=== PATIENT | female | born 1955 | race Caucasian/White ===

== ENCOUNTER → 2017-02-14 | Outpatient (REF) | payer OTHER ==
[2017-02-15 10:13] LABS: BASO # 0.1 K/mm3 (0.0-0.2); BASO % 0.9 % (0.0-1.0); EOS # 0.2 K/mm3 (0.0-0.50); EOS % 3.2 % (0.0-3.0); LYMPH # 2.6 K/mm3 (1.5-4.5); LYMPH % 33.2 % (24.0-44.0); MEAN CORPUSCULAR HEMOGLOBIN 28.8 pg (27.0-33.0); MEAN CORPUSCULAR HGB CONC 32.5 g/dl (32.0-36.5); MEAN CORPUSCULAR VOLUME 88.7 fl (80.0-96.0); MONO # 0.6 K/mm3 (0.0-0.8); MONO % 8.6 % (0.0-5.0); NEUTROPHILS # 3.8 K/mm3 (1.8-7.7); NEUTROPHILS % 51.7 % (36.0-66.0); RED CELL DISTRIBUTION WIDTH 13.1 % (11.5-14.5); WHITE BLOOD COUNT 7.3 K/mm3 (4.0-10.0)
[2017-02-15 10:25] LABS: ALBUMIN 4.3 GM/DL (3.2-5.2); ALKALINE PHOSPHATASE 84 U/L (45-117); ALT/SGPT 23 U/L (12-78); ANION GAP 6 MEQ/L (8-16); AST/SGOT 13 U/L (15-37); BILIRUBIN,TOTAL 0.5 MG/DL (0.2-1.0); BLOOD UREA NITROGEN 16 MG/DL (7-18); CALCIUM LEVEL 9.6 MG/DL (8.8-10.2); CARBON DIOXIDE LEVEL 30 MEQ/L (21-32); CHLORIDE LEVEL 102 MEQ/L (98-107); CHOLESTEROL LEVEL 240 MG/DL (<200); CREATININE FOR GFR 0.78 MG/DL (0.55-1.02); GLOMERULAR FILTRATION RATE > 60.0 (>45); GLUCOSE, FASTING 98 MG/DL (80-110); POTASSIUM SERUM 4.7 MEQ/L (3.5-5.1); SODIUM LEVEL 138 MEQ/L (136-145); TOTAL PROTEIN 7.6 GM/DL (6.4-8.2); TRIGLYCERIDES LEVEL 226 MG/DL (<150)
== END ==
LOC: M LAB REF 09:35
PROVIDERS: ATTEND Physician Assistant Medical
DX: M13.80 Other specified arthritis, unspecified site (principal); E78.2 Mixed hyperlipidemia

== ENCOUNTER → 2017-10-21 | Outpatient (CLI) | payer OTHER ==
[2017-10-21 19:01] LABS: AST/SGOT 17 U/L (7-37); CREATININE FOR GFR 0.82 MG/DL (0.55-1.30); GLOMERULAR FILTRATION RATE > 60.0 (>45)
[2017-10-21 19:01] LABS: BLOOD UREA NITROGEN 20 MG/DL (7-18)
== END ==
LOC: M LAB 17:24
DX: M25.569 Pain in unspecified knee (principal)
CPT/HCPCS: 84450

== ENCOUNTER → 2017-12-23 | Outpatient (CLI) | payer OTHER ==
[2017-12-23 09:31] LABS: ESTIMATED AVERAGE GLUCOSE 126 MG/DL (60-110)
[2017-12-23 09:51] LABS: CHOLESTEROL LEVEL 182 MG/DL (<200); HDL CHOLESTEROL 50 MG/DL (>40); LDL CHOLESTEROL 102.8 MG/DL (<100); NON-HDL-C 132 MG/DL; TRIGLYCERIDES LEVEL 146 MG/DL (<150)
== END ==
LOC: M LAB 08:43
DX: Z13.228 Encounter for screening for other metabolic disorders (principal); E66.9 Obesity, unspecified (principal); E78.5 Hyperlipidemia, unspecified
CPT/HCPCS: 84443

== ENCOUNTER → 2018-01-06 | Outpatient (REF) | payer OTHER ==
[2018-01-06 18:46] LABS: APPEARANCE, URINE CLEAR (CLEAR); BACTERIA, URINE AUTO 1+ (NEGATIVE); BILIRUBIN, URINE AUTO NEGATIVE (NEGATIVE); BLOOD, URINE BLOOD NEGATIVE (NEGATIVE); COLOR, URINE STRAW (YELLOW); GLUCOSE, URINE (UA) AUTO NEGATIVE (NEGATIVE); KETONE, URINE AUTO NEGATIVE (NEGATIVE); LEUKOCYTE ESTERASE, URINE AUTO 2+ (NEGATIVE); MUCUS, URINE SMALL (NEGATIVE); NITRITE, URINE AUTO NEGATIVE (NEGATIVE); PROTEIN, URINE AUTO NEGATIVE (NEGATIVE); RBC, URINE AUTO 0 /HPF (0-3); SPECIFIC GRAVITY URINE AUTO 1.006 (1.002-1.035); SQUAMOUS EPITHELIAL CELL UR AU 0 /HPF (0-6); UROBILINOGEN, URINE AUTO 0.2 mg/dL (0.0-2.0); WBC, URINE AUTO 7 /HPF (0-3)
== END ==
LOC: M SMT 17:08
DX: R32 Unspecified urinary incontinence (principal)

== ENCOUNTER → 2018-01-23 | Outpatient (CLI) | payer OTHER | LOC: M WHC 16:24 | DX: Z12.31 Encounter for screening mammogram for malignant neoplasm of breast (principal) | CPT/HCPCS: 77067 ==

== ENCOUNTER → 2018-09-03 | Outpatient (REF) | payer OTHER ==
[2018-09-03 13:01] LABS: BASO # 0.1 10^3/uL (0.0-0.2); BASO % 0.8 % (0.0-1.0); EOS # 0.2 10^3/uL (0.0-0.50); EOS % 2.3 % (0.0-3.0); HEMATOCRIT 41.8 % (36.0-47.0); LYMPH # 2.4 10^3/uL (1.5-4.5); LYMPH % 30.4 % (24.0-44.0); MEAN CORPUSCULAR HEMOGLOBIN 26.3 pg (27.0-33.0); MEAN CORPUSCULAR HGB CONC 31.1 g/dl (32.0-36.5); MEAN CORPUSCULAR VOLUME 84.4 fl (80.0-96.0); MONO % 12.2 % (0.0-5.0); NEUTROPHILS # 4.3 10^3/uL (1.8-7.7); NEUTROPHILS % 53.7 % (36.0-66.0); PLATELET COUNT, AUTOMATED 324 10^3/uL (150-450); RED BLOOD COUNT 4.95 10^6/uL (4.00-5.40)
[2018-09-03 13:11] LABS: ALBUMIN 3.9 GM/DL (3.2-5.2); ALT/SGPT 21 U/L (12-78); BILIRUBIN,TOTAL 0.4 MG/DL (0.2-1.0); BLOOD UREA NITROGEN 12 MG/DL (7-18); CALCIUM LEVEL 9.1 MG/DL (8.8-10.2); CARBON DIOXIDE LEVEL 30 MEQ/L (21-32); CHLORIDE LEVEL 104 MEQ/L (98-107); CHOLESTEROL LEVEL 204 MG/DL (<200); CHOLESTEROL RISK RATIO 3.849 (<5); CREATININE FOR GFR 0.69 MG/DL (0.55-1.30); GLOMERULAR FILTRATION RATE > 60.0 (>45); GLUCOSE, FASTING 94 MG/DL (70-100); HDL CHOLESTEROL 53 MG/DL (>40); LDL CHOLESTEROL 116 MG/DL (<100); NON-HDL-C 151 MG/DL; POTASSIUM SERUM 4.9 MEQ/L (3.5-5.1); SODIUM LEVEL 139 MEQ/L (136-145); TOTAL 25(OH) VITAMIN D 23.2 NG/ML (30.0-100.0); TOTAL PROTEIN 7.5 GM/DL (6.4-8.2); TRIGLYCERIDES LEVEL 174 MG/DL (<150)
[2018-09-03 13:39] LABS: HEMOGLOBIN A1c 6.3 %
== END ==
LOC: M SFHCPLAZ 12:36
PROVIDERS: ATTEND Nurse Practitioner Family
DX: Z13.228 Encounter for screening for other metabolic disorders (principal); E78.5 Hyperlipidemia, unspecified; E55.9 Vitamin D deficiency, unspecified; R73.01 Impaired fasting glucose

== ENCOUNTER → 2018-12-04 | Outpatient (CLI) | payer OTHER ==
--- NOTE | 2018-12-04 19:39 | REP ---
CERVICAL SPINE SERIES: Full cervical spine series was performed with 8 views obtained. There is no fracture. There is no prevertebral soft tissue swelling. The C7 vertebral body is not completely visualized. There is mild spurring of C3 with moderate spurring of C5 through C7. There is mild disc space narrowing at C3-4, C5-6, with moderate narrowing at C6-7 with mild subchondral sclerosis. There is diffuse narrowing and sclerosis of the posterior facet joints. There is minimal retrolisthesis of C3 on C4 and a couple of millimeters, slightly increased with extension. Uncovertebral and facet spurring appears to cause at least a mild degree of bilateral foraminal narrowing at C3-4. IMPRESSION: Degenerative changes as above. Electronically Signed by Don Omalley MD 12/04/2018 07:41 P
== END ==
LOC: M LRY 18:44
PROVIDERS: ATTEND Nurse Practitioner Family
DX: M50.31 Other cervical disc degeneration, high cervical region (principal); M50.322 Other cervical disc degeneration at C5-C6 level; M50.323 Other cervical disc degeneration at C6-C7 level; M25.78 Osteophyte, vertebrae

== ENCOUNTER → 2019-02-25 | Outpatient (REF) | payer OTHER ==
[2019-02-25 18:17] LABS: ALBUMIN 3.8 GM/DL (3.2-5.2); ALT/SGPT 22 U/L (12-78); BILIRUBIN,TOTAL 0.4 MG/DL (0.2-1.0); BLOOD UREA NITROGEN 12 MG/DL (7-18); CALCIUM LEVEL 9.3 MG/DL (8.8-10.2); CARBON DIOXIDE LEVEL 31 MEQ/L (21-32); CHLORIDE LEVEL 106 MEQ/L (98-107); CHOLESTEROL LEVEL 194 MG/DL (<200); CREATININE FOR GFR 0.77 MG/DL (0.55-1.30); GLOMERULAR FILTRATION RATE > 60.0 (>45); GLUCOSE, FASTING 101 MG/DL (70-100); HDL CHOLESTEROL 53 MG/DL (>40); LDL CHOLESTEROL 114 MG/DL (<100); NON-HDL-C 141 MG/DL; SODIUM LEVEL 142 MEQ/L (136-145); TOTAL PROTEIN 7.2 GM/DL (6.4-8.2); TRIGLYCERIDES LEVEL 134 MG/DL (<150)
[2019-02-25 18:40] LABS: HEMOGLOBIN A1c 6.7 %
[2019-02-27 17:42] LABS: FREE T4 0.96 NG/DL (0.76-1.46)
== END ==
LOC: M LAB REF 17:24
PROVIDERS: ATTEND Nurse Practitioner Family
DX: R73.01 Impaired fasting glucose (principal); E78.5 Hyperlipidemia, unspecified

== ENCOUNTER → 2019-06-30 | Outpatient (REF) | payer OTHER ==
[2019-06-30 17:07] LABS: BASO # 0.1 10^3/uL (0.0-0.2); BASO % 0.6 % (0.0-1.0); EOS # 0.3 10^3/uL (0.0-0.5); EOS % 2.6 % (0.0-3.0); HEMATOCRIT 39.7 % (36.0-47.0); HEMOGLOBIN 12.4 g/dl (12.0-15.5); LYMPH # 3.2 10^3/uL (1.5-5.0); LYMPH % 33.5 % (24.0-44.0); MEAN CORPUSCULAR HEMOGLOBIN 27.8 pg (27.0-33.0); MEAN CORPUSCULAR HGB CONC 31.2 g/dl (32.0-36.5); MONO # 1.3 10^3/uL (0.0-0.8); MONO % 13.4 % (0.0-5.0); NEUTROPHILS # 4.8 10^3/uL (1.5-8.5); NEUTROPHILS % 49.6 % (36.0-66.0); PLATELET COUNT, AUTOMATED 304 10^3/uL (150-450); RED BLOOD COUNT 4.46 10^6/uL (4.00-5.40); WHITE BLOOD COUNT 9.6 10^3/uL (4.0-10.0)
[2019-06-30 17:32] LABS: ALBUMIN 4.2 GM/DL (3.2-5.2); PERCENT SATURATION 16.4 % (13.2-45.0)
== END ==
LOC: M LAB REF 16:47
PROVIDERS: ATTEND Orthopaedic Surgery
DX: Z01.818 Encounter for other preprocedural examination (principal); M25.569 Pain in unspecified knee; M17.11 Unilateral primary osteoarthritis, right knee

== ENCOUNTER → 2019-07-27 | Outpatient (REF) | payer OTHER ==
[2019-07-27 12:24] LABS: BASO # 0.1 10^3/uL (0.0-0.2); BASO % 0.7 % (0.0-1.0); EOS # 0.4 10^3/uL (0.0-0.5); EOS % 3.3 % (0.0-3.0); HEMATOCRIT 31.2 % (36.0-47.0); HEMOGLOBIN 9.5 g/dl (12.0-15.5); LYMPH # 2.2 10^3/uL (1.5-5.0); LYMPH % 20.6 % (24.0-44.0); MEAN CORPUSCULAR HEMOGLOBIN 27.8 pg (27.0-33.0); MEAN CORPUSCULAR HGB CONC 30.4 g/dl (32.0-36.5); MEAN CORPUSCULAR VOLUME 91.2 fl (80.0-96.0); MONO # 1.3 10^3/uL (0.0-0.8); MONO % 12.4 % (0.0-5.0); NEUTROPHILS # 6.6 10^3/uL (1.5-8.5); NEUTROPHILS % 61.1 % (36.0-66.0); PLATELET COUNT, AUTOMATED 417 10^3/uL (150-450); RED BLOOD COUNT 3.42 10^6/uL (4.00-5.40); WHITE BLOOD COUNT 10.8 10^3/uL (4.0-10.0)
[2019-07-27 12:38] LABS: INR 1.75; PROTHROMBIN TIME 20.2 SECONDS (11.8-14.0)
[2019-07-27 12:39] LABS: PARTIAL THROMBOPLASTIN TIME 45.6 SECONDS (25.0-38.4)
[2019-07-27 13:53] LABS: BLOOD UREA NITROGEN 17 MG/DL (7-18); CREATININE FOR GFR 0.72 MG/DL (0.55-1.30); GLUCOSE, FASTING 93 MG/DL (70-100)
[2019-07-27 13:54] LABS: ALBUMIN 3.6 GM/DL (3.2-5.2); ALT/SGPT 44 U/L (12-78); BILIRUBIN,TOTAL 0.9 MG/DL (0.2-1.0); CALCIUM LEVEL 8.8 MG/DL (8.8-10.2); CARBON DIOXIDE LEVEL 28 MEQ/L (21-32); CHLORIDE LEVEL 104 MEQ/L (98-107); CHOLESTEROL LEVEL 182 MG/DL (<200); CHOLESTEROL RISK RATIO 4.439 (<5); FREE T4 1.35 NG/DL (0.76-1.46); GLOMERULAR FILTRATION RATE > 60.0 (>45); HDL CHOLESTEROL 41 MG/DL (>40); LDL CHOLESTEROL 111 MG/DL (<100); NON-HDL-C 141 MG/DL; POTASSIUM SERUM 4.8 MEQ/L (3.5-5.1); SODIUM LEVEL 141 MEQ/L (136-145); TOTAL PROTEIN 6.9 GM/DL (6.4-8.2); TRIGLYCERIDES LEVEL 150 MG/DL (<150)
== END ==
LOC: M LAB REF 11:53
PROVIDERS: ATTEND Nurse Practitioner Family
DX: E78.5 Hyperlipidemia, unspecified (principal); E11.9 Type 2 diabetes mellitus without complications

== ENCOUNTER 2019-09-25 13:54 | Emergency (ER) | payer OTHER ==
[~2019-09-25] VITALS: Ht 167.6 cm; Wt 105.9 kg
[2019-09-25] MEDS ORDERED: NAPR220C14 PO (14:13)
[2019-09-25] MEDS ORDERED: ACET-1379 PO (14:13)
[2019-09-25] MEDS ORDERED: OXYB10TA23 OR (14:13)
[2019-09-25] MEDS ORDERED: NORCO, ANEXSIA 5/325MG TABLET (HYDROcodone/ACETAMINOPHEN) PO ONE (14:45)
--- NOTE | 2019-09-25 14:53 | REP ---
Right knee four views: Comparison is 05/30/2015. There is a total knee arthroplasty as an interval change. There is an impaction fracture of the distal femoral condyles to the distal femoral metaphysis as an interval change. There is no evidence of loosening or displacement of the arthroplasty components. Impression: There is an impaction fracture of the distal femoral condyles going to the distal femoral metaphysis. There is a total knee arthroplasty. There is no loosening or displacement of the arthroplasty. Electronically Signed by Don Contreras MD 09/25/2019 02:45 P
[2019-09-25] MEDS ORDERED: MORPHINE 4 MG/ML 1ML VIAL/SYRINGE (J2270) IV ONE ×3 (18:15→21:00)
[2019-09-25] MEDS ORDERED: ONDANSETRON 4MG/2ML VIAL (J2405) IV ONE (18:30)
[2019-09-25 21:25] VITALS: BP 135/63
== END 2019-09-25 21:30 | disposition short-term general hospital (02) ==
LOC: M ED 13:54
DX: S72.411A Displaced unspecified condyle fracture of lower end of right femur, initial encounter for closed fracture (principal); Z96.651 Presence of right artificial knee joint; W00.9XXA Unspecified fall due to ice and snow, initial encounter; Y92.89 Other specified places as the place of occurrence of the external cause; Y93.9 Activity, unspecified; Y99.0 Civilian activity done for income or pay
CPT/HCPCS: 73564; 96374; 96375; 96376; 99284; J2270; J2405

== ENCOUNTER → 2020-07-11 | Outpatient (REF) | payer OTHER ==
[~2020-07-11] MED LIST: ACET-1379 PO; NAPR220C14 PO; OXYB10TA23 OR
[2020-07-11 17:22] LABS: ALBUMIN 4.1 GM/DL (3.2-5.2); ALT/SGPT 42 U/L (12-78); BILIRUBIN,TOTAL 0.3 MG/DL (0.2-1.0); BLOOD UREA NITROGEN 18 MG/DL (7-18); CALCIUM LEVEL 9.8 MG/DL (8.8-10.2); CARBON DIOXIDE LEVEL 31 MEQ/L (21-32); CHLORIDE LEVEL 105 MEQ/L (98-107); CHOLESTEROL LEVEL 225 MG/DL (<200); CHOLESTEROL RISK RATIO 4.687 (<5); CREATININE FOR GFR 0.78 MG/DL (0.55-1.30); GLOMERULAR FILTRATION RATE > 60.0 (>45); GLUCOSE, FASTING 99 MG/DL (70-100); HDL CHOLESTEROL 48 MG/DL (>40); LDL CHOLESTEROL 127 MG/DL (<100); NON-HDL-C 177 MG/DL; POTASSIUM SERUM 5.1 MEQ/L (3.5-5.1); SODIUM LEVEL 140 MEQ/L (136-145); TOTAL PROTEIN 7.6 GM/DL (6.4-8.2); TRIGLYCERIDES LEVEL 250 MG/DL (<150)
[2020-07-11 17:28] LABS: TOTAL 25(OH) VITAMIN D 53.6 NG/ML (30.0-100.0)
[2020-07-11 18:50] LABS: HEMOGLOBIN A1c 6.1 %
== END ==
LOC: M SFHCPLAZ 16:29
PROVIDERS: ATTEND Nurse Practitioner Family
DX: E78.5 Hyperlipidemia, unspecified (principal); E55.9 Vitamin D deficiency, unspecified; E11.9 Type 2 diabetes mellitus without complications

== ENCOUNTER → 2021-07-17 | Outpatient (REF) | payer OTHER ==
[2021-07-17 16:45] LABS: ALBUMIN 4.2 GM/DL (3.2-5.2); ALT/SGPT 31 U/L (12-78); BILIRUBIN,TOTAL 0.4 MG/DL (0.2-1.0); BLOOD UREA NITROGEN 26 MG/DL (7-18); CALCIUM LEVEL 9.2 MG/DL (8.8-10.2); CARBON DIOXIDE LEVEL 30 MEQ/L (21-32); CHLORIDE LEVEL 108 MEQ/L (98-107); CHOLESTEROL LEVEL 184 MG/DL (<200); CHOLESTEROL RISK RATIO 3.345 (<5); CREATININE FOR GFR 0.76 MG/DL (0.55-1.30); GLOMERULAR FILTRATION RATE > 60.0 (>45); GLUCOSE, FASTING 120 MG/DL (70-100); HDL CHOLESTEROL 55 MG/DL (>40); LDL CHOLESTEROL 98 MG/DL (<100); NON-HDL-C 129 MG/DL; POTASSIUM SERUM 4.9 MEQ/L (3.5-5.1); SODIUM LEVEL 143 MEQ/L (136-145); TOTAL PROTEIN 7.2 GM/DL (6.4-8.2); TRIGLYCERIDES LEVEL 155 MG/DL (<150)
[2021-07-17 16:53] LABS: TOTAL 25(OH) VITAMIN D 30.1 NG/ML (30.0-100.0)
[2021-07-17 17:28] LABS: HEMOGLOBIN A1c 5.8 %
== END ==
LOC: M SFHCPLAZ 16:15
PROVIDERS: ATTEND Nurse Practitioner Family
DX: E78.5 Hyperlipidemia, unspecified (principal); E11.9 Type 2 diabetes mellitus without complications; E55.9 Vitamin D deficiency, unspecified

== ENCOUNTER → 2024-08-26 | Outpatient (CLI) | payer MEDICARE | LOC: M SLEEP 20:00 | PROVIDERS: ATTEND Physician Assistant | DX: G47.33 Obstructive sleep apnea (adult) (pediatric) (principal) ==